=== PATIENT | male | born 1990 | race Caucasian/White ===

== ENCOUNTER 2022-10-06 13:29 | Emergency (ER) | payer OTHER ==
[2022-10-06 13:38] VITALS: BP 138/84; PULSE 95; RESP 18; TEMP 98.5; BMI 34.0
[2022-10-06] MEDS ORDERED: DIPHTH,PERTUSS(ACELL),TET 0.5 ML DISP.SYRIN IM ONE (13:40)
== END 2022-10-06 14:23 | disposition home or self-care (01) ==
LOC: FER 13:29
PROC: 3E0234Z Introduction of Serum, Toxoid and Vaccine into Muscle, Percutaneous Approach (ICD-10-PCS; principal; 2022-10-06)
DX: S00.81XA Abrasion of other part of head, initial encounter (principal); S01.81XA Laceration without foreign body of other part of head, initial encounter; W20.8XXA Other cause of strike by thrown, projected or falling object, initial encounter
CPT/HCPCS: 99283-25; 99284-25